=== PATIENT | female | born 1990 | race Caucasian/White ===

== ENCOUNTER 2019-04-01 18:43 | Emergency (ER) | payer OTHER ==
[~2019-04-01] VITALS: Ht 175.3 cm; Wt 61.2 kg
[2019-04-01 18:50] VITALS: BP 130/93
[2019-04-01] MEDS ORDERED: ADDERAL20 MG ORAL (18:50)
--- NOTE | 2019-04-01 18:50 | NUR ---
ED Nurse Note: pt walked in to ER c/o possible Lt shoulder dislocation. pt c/o pain 03/27. pt aao x4 and ambulatory. pt was exersing and felt dislocated shoulder. per pt, it happens occasionally and usually she is able to put it back but not this time. boyfriend at bedside. calm and cooperative but moaning for the pain. skin clean and intact.
--- NOTE | 2019-04-01 18:52 | NUR ---
ED Nurse Note: ERMD at bedside put the shoulder back. pt tolerated well without having increased pain.
--- NOTE | 2019-04-01 19:01 | NUR ---
ED Nurse Note: sling applied on Lt shouder at bedside.
[2019-04-01] MEDS ORDERED: IBUPROFEN600 MG ORAL (19:03)
[2019-04-01] MEDS ORDERED: NORCO 5-325 TA1 EACH ORAL (19:09)
[2019-04-01 19:18] VITALS: BP 130/93
--- NOTE | 2019-04-01 19:18 | NUR ---
ER Nurse Note: Pt seen, treated, medically cleared for discharge by ERMD. Discharge instuctions and prescriptions given with repeat verbalization by pt. Emphasized to follow up with primay care provider; take whole course of medication. Explained each medication. All orders completed per ERMD orders. Pt a&ox4, VSS, no signs of distress. Sling applied. ID band removed. All questions answered per pt's questions. Pt left with all belongings, left with own transportation.
--- NOTE | 2019-04-01 19:20 | Emergency Room Report ---
History of Present Illness General Chief Complaint: Upper Extremity Injury Source: Patient Present Illness HPI Patient is a 29-year-old female presents after left shoulder dislocation. Patient reports having multiple prior dislocations in the past. She states she is normally able to self reduce. Patient reports having injury just prior to arrival. Patient stated she was doing shoulder exercises when the shoulder dislocated. She denies any other locations of pain. She had previously seen orthopedics for this and had been advised against surgery.Patient reports having moderate pain. Allergies: Coded Allergies: No Known Allergies (Unverified , 04/01/19) Patient History Last Menstrual Period: 03/27/19 Now: No Reviewed Nursing Documentation: PMH: Agreed; PSxH: Agreed Nursing Documentation-PMH Past Medical History: No Stated History Review of Systems All Other Systems: negative except mentioned in HPI Physical Exam Vital Signs Date Time Temp Pulse Resp B/P (MAP) Pulse Ox O2 Delivery O2 Flow Rate FiO2 04/01/19 18:47 98.6 72 16 130/93 (105) 98 Room Air General Appearance: well appearing, no apparent distress, alert, GCS 15 Head: normocephalic, atraumatic ENT: hearing grossly normal, normal voice Neck: full range of motion, supple Respiratory: no respiratory distress, speaking full sentences Musculoskeletal: other - left shoulder deformity, anterior fullness Neurologic: normal inspection, alert, oriented x3, responsive, normal gait Psychiatric: mood/affect normal Skin: no rash Medical Decision Making Diagnostic Impression: Primary Impression: Shoulder dislocation, recurrent ER Course Patient presented for left shoulder pain. Differential diagnosis includes was limited to dislocation, fracture, contusion among others. Patient has a benign exam and does not appear to require any further imaging or laboratory testing at this time. Patient appears to have a left shoulder dislocation. Shoulder dislocation was reduced without medication using Platt technique. Patient tolerated this well. Patient was placed in a sling. She is advised to follow- up with orthopedics for recheck. Patient was offered narcotic pain medication which she declined. Patient was given prescription for ibuprofen. Last Vital Signs Date Time Temp Pulse Resp B/P (MAP) Pulse Ox O2 Delivery O2 Flow Rate FiO2 04/01/19 18:50 98.6 80 16 130/93 98 Room Air Status: improved Disposition: HOME, SELF-CARE Condition: Stable Scripts Ibuprofen* (MOTRIN*) 600 Mg Tablet 600 MG ORAL Q8H PRN for For Pain, #20 TAB 0 Refills Prov: Donavon Menard MD 04/01/19 Referrals: NON PHYSICIAN (PCP) Patient Instructions: Shoulder Dislocation, [id number] Additional Instructions: Follow up with orthopedics for shoulder repair. Return if any concerns. Donavon Menard MD Apr 01, 2019 19:20
== END 2019-04-01 19:20 | disposition home or self-care (01) ==
LOC: EMR 19:07
DX: S43.005A Unspecified dislocation of left shoulder joint, initial encounter (principal); X58.XXXA Exposure to other specified factors, initial encounter; Y92.9 Unspecified place or not applicable
CPT/HCPCS: 99282; 99283